=== PATIENT | female | born 1975 | race Caucasian/White ===

== ENCOUNTER 2016-06-11 15:28 | Emergency (ER) | payer OTHER ==
--- NOTE | 2016-06-11 15:36 | ER Document Report ---
ED Medical Screen (RME) - General Stated Complaint: POSSIBLE BLOOD CLOTS IN LEG Time seen by provider: 15:33 Mode of Arrival: Wheelchair Information source: Patient Notes: 41-year-old female presents to ED for left lower leg pain and DVTs left leg. She was sent to the emergency room from the special [facility] with a positive Doppler for 3 blood clots. I have greeted and performed a rapid initial assessment of this patient. A comprehensive ED assessment and evaluation of the patient, analysis of test results and completion of medical decision making process will be conducted by an additional ED providers. TRAVEL OUTSIDE OF THE [place] IN LAST 30 DAYS: No - Related Data Allergies/Adverse Reactions: No Known Allergies Allergy (Verified 08/28/15 10:46) Past Medical History - Past Medical History Cardiac Medical History: Denies: Hx Coronary Artery Disease, Hx Heart Attack, Hx Hypertension Pulmonary Medical History: Reports: Hx Bronchitis Denies: Hx Asthma, Hx COPD, Hx Pneumonia Neurological Medical History: Denies: Hx Cerebrovascular Accident, Hx Seizures Musculoskeltal Medical History: Denies Hx Arthritis - Immunizations Hx Diphtheria, Pertussis, Tetanus Vaccination: Yes
[2016-06-11 15:56] LABS: ABSOLUTE LYMPHOCYTES (AUTO) 1.3 10^3/uL (0.5-4.7); ABSOLUTE MONOCYTES (AUTO) 0.5 10^3/uL (0.1-1.4); BASOPHILS % (AUTO) 0.5 % (0-2); EOSINOPHILS % (AUTO) 0.7 % (0-6); HEMATOCRIT 34.4 % (36.0-47.0); HEMOGLOBIN 10.8 g/dL (12.0-15.5); LYMPHOCYTES % (AUTO) 18.6 % (13-45); MEAN CORPUSCULAR HEMOGLOBIN 26.9 pg (27.0-33.4); MEAN CORPUSCULAR HGB CONC 31.5 g/dL (32.0-36.0); MEAN CORPUSCULAR VOLUME 85 fl (80-97); MONOCYTES % (AUTO) 6.8 % (3-13); RED BLOOD COUNT 4.03 10^6/uL (3.72-5.28); RED CELL DISTRIBUTION WIDTH 14.7 % (11.5-14.0); SEGMENTED NEUTROPHILS % (AUTO) 73.4 % (42-78); WHITE BLOOD COUNT 6.8 10^3/uL (4.0-10.5)
[2016-06-11 16:00] LABS: PARTIAL THROMBOPLASTIN TIME 32.6 SEC (23.5-35.8); PROTHROMBIN TIME 12.8 SEC (11.4-15.4)
[2016-06-11 16:05] LABS: ALANINE AMINOTRANSFERASE 108 U/L (9-52); ALBUMIN 4.3 g/dL (3.5-5.0); ALKALINE PHOSPHATASE 243 U/L (38-126); ANION GAP 11 (5-19); ASPARTATE AMINO TRANSFERASE 91 U/L (14-36); BILIRUBIN,TOTAL 0.7 mg/dL (0.2-1.3); BLOOD UREA NITROGEN 11 mg/dL (7-20); CALCIUM 10.1 mg/dL (8.4-10.2); CARBON DIOXIDE 28 mmol/L (22-30); CHLORIDE 102 mmol/L (98-107); CREATININE RESULT 0.62 mg/dL (0.52-1.25); GLUCOSE 108 mg/dL (75-110); POTASSIUM 4.7 mmol/L (3.6-5.0); SODIUM 140.6 mmol/L (137-145); TOTAL PROTEIN 7.1 g/dL (6.3-8.2)
[2016-06-11] MEDS ORDERED: OXYCODONE-ACETAMINOPHEN 5-325 MG TABLET PO ONE (16:24)
[2016-06-11] MEDS ORDERED: RIVAROXABAN 15 MG TABLET PO ONE (16:25)
--- NOTE | 2016-06-11 16:26 | ER Document Report ---
ED General - General Chief Complaint: Leg Pain Stated Complaint: POSSIBLE BLOOD CLOTS IN LEG Time seen by provider: 16:15 Mode of Arrival: Wheelchair Information source: Patient Notes: 41-year-old female 1 week status post open surgery to left knee for anterior cruciate ligament and PCL repair by [facility] orthopedics. Patient is complaining about pain to the posterior left thigh since his surgery and increasing pain and swelling in the left calf over the past 2 days. She was seen at the office today and referred for outpatient venous Doppler which is identified 1 tibial into peroneal clots but no clots above the knee. The patient reports no prior history of blood clots and no family history of blood clots. She reports he's been sweating a lot since his surgery but has had no chest pain, shortness of breath, abdominal pain, hematemesis, hematochezia, melena, or dysuria. She has no place of numbness weakness to any extremity no swelling to other extremities. Physical Exam: General: Alert, appears well. HEENT: Normocephalic. Atraumatic. PERRLA. Extraocular movements intact. Oropharynx clear. Neck: Supple. Non-tender. Respiratory: No respiratory distress. Clear and equal breath sounds bilaterally. Cardiovascular: Regular rate and rhythm. Abdominal: Normal Inspection. Soft, non-tender. No distension. Normal Bowel Sounds. Back: Non-tender. No deformity or step off. Extremities are warm with 2+ pulses. Patient has dry dressing and wrap in place over the left knee. She has tenderness to palpation to the posterior left thigh no palpable cords erythema warmth or fluctuance or crepitance. She does have mild ecchymosis there. There is also ecchymosis noted scattered areas on the left calf with positive Homans sign. She has 2+ distressposterior tibial pulses bilaterally Neurological: Speech clear mentation normal moves all extremities well Psychological: Normal affect. Normal Mood. Skin: Warm. Dry. Normal color.am TRAVEL OUTSIDE OF THE [place] IN LAST 30 DAYS: No - Related Data Allergies/Adverse Reactions: No Known Allergies Allergy (Verified 06/11/16 15:34) Past Medical History - General Information source: Patient - Social History Smoking Status: Never Smoker Chew tobacco use (# tins/day): No Frequency of alcohol use: None Drug Abuse: None Family History: Reviewed & Not Pertinent Patient has suicidal ideation: No Patient has homicidal ideation: No - Past Medical History Cardiac Medical History: Denies: Hx Coronary Artery Disease, Hx Heart Attack, Hx Hypertension Pulmonary Medical History: Reports: Hx Bronchitis Denies: Hx Asthma, Hx COPD, Hx Pneumonia Neurological Medical History: Denies: Hx Cerebrovascular Accident, Hx Seizures Renal/ Medical History: Denies: Hx Peritoneal Dialysis Musculoskeltal Medical History: Denies Hx Arthritis - Immunizations Hx Diphtheria, Pertussis, Tetanus Vaccination: Yes Review of Systems - Review of Systems Constitutional: denies: Chills, Fever EENT: denies: Ear pain, Throat pain Cardiovascular: denies: Chest pain Respiratory: denies: Cough, Short of breath Gastrointestinal: denies: Abdominal pain, Nausea, Vomiting Genitourinary: denies: Burning, Dysuria Musculoskeletal: denies: Back pain Hematologic/Lymphatic: denies: Blood clots Neurological/Psychological: denies: Weakness, Numbness Physical Exam - Vital signs Vitals: Temp Pulse Resp BP Pulse Ox 97.6 F 104 H 16 127/82 H 97 06/11/16 15:31 06/11/16 15:31 06/11/16 15:31 06/11/16 15:31 06/11/16 15:31 Course - Re-evaluation Re-evalutation: 06/11/16 16:29 Patient is developed multiple calf clots one-week status post left knee surgery she is likely to be minimally mobile due to that surgery for some time think is at high risk to have the clots progress. I discussed options of watchful waiting versus anticoagulation with my recommendation that we proceed with anticoagulation and she is in agreement. Patient will follow with her physician Dr. Miller at [place] for follow-up and repeat Doppler study. Placed on Xarelto 15 mg for 3 weeks and asked that she get the following prescriptions 20 mg a day from her primary care physician of also asked her to return for chest pain or shortness of breath or watching sure that she does not develop pulmonary embolism from this - Vital Signs Vital signs: Temp Pulse Resp BP Pulse Ox 97.6 F 104 H 16 127/82 H 97 06/11/16 15:31 06/11/16 15:31 06/11/16 15:31 06/11/16 15:31 06/11/16 15:31 - Laboratory Result Diagrams: 06/11/16 15:40 06/11/16 15:40 Laboratory results interpreted by me: 06/11/16 06/11/16 15:40 15:40 Hgb 10.8 L Hct 34.4 L MCH 26.9 L MCHC 31.5 L RDW 14.7 H AST 91 H ALT 108 H Alkaline Phosphatase 243 H Discharge - Discharge Clinical Impression: Calf DVT (deep venous thrombosis) Qualifiers: Laterality: left Chronicity: acute Qualified Code(s): I82.4Z2 - Acute embolism and thrombosis of unspecified deep veins of left distal lower extremity Condition: Stable Disposition: HOME, SELF-CARE Additional Instructions: DVT Outpatient Treatment You have deep venous thrombosis (DVT) in your leg. DVT or phlebitis is blood clots within the large deep veins. This causes redness, warmth, and tenderness of the involved area. This problem is more likely to affect people who smoke, take estrogen, have had recent surgery, have been immobile, have had previous DVT, or who have serious underlying health conditions. Keep your legs elevated. A heating pad, 20 minutes every two hours, can help with leg pain. For now, keep walking to a minimum. Don't do any physical work, lifting, or exercise. If the doctor has recommended medication for you, it 's important that you take it. You will be started on a blood-thinning medication. Follow-up is important. Your medication needs to be monitored. Call or return at once if you cough blood or vomit blood, pass black or bloody stool, or have any other unusual bleeding. DVT can cause serious complications. The clots can damage the valves in the veins, leading to chronic pain and swelling. If a clot breaks loose and floats upstream, it can stick in the lungs. A clot in the lungs, called pulmonary embolism, can be life-threatening. Call the doctor or return if you develop increasing leg pain and swelling, leg discoloration, fever, chest pain, or shortness of breath. Follow-up within 1 week with your physician at [place] Prescriptions: Rivaroxaban [Xarelto 15 mg Tablet] 15 mg PO BID #42 tablet
[2016-06-11 17:09] VITALS: BP 130/77
== END 2016-06-11 17:10 | disposition home or self-care (01) ==
LOC: ER 15:28
DX: I82.4Z2 Acute embolism and thrombosis of unspecified deep veins of left distal lower extremity (principal); M79.605 Pain in left leg; Z98.890 Other specified postprocedural states
CPT/HCPCS: 36415; 80053; 85025; 85610; 85730; 99283

== ENCOUNTER → 2016-06-11 | Outpatient (CLI) | payer OTHER | LOC: SP 14:49 | PROVIDERS: ATTEND Physician Assistant | DX: M79.662 Pain in left lower leg (principal); R60.9 Edema, unspecified; I82.442 Acute embolism and thrombosis of left tibial vein | CPT/HCPCS: 93971 ==